=== PATIENT | male | born 1985 ===

== ENCOUNTER 2025-07-02 09:30 | Day surgery (SDC) | payer OTHER ==
[2025-06-29 11:54] LABS: BASO % 0.8 % (0.1-1.2); EOS # 0.15 (0.04-0.54); EOS % 2.1 % (0.7-7.0); LYMPH # 3.49 (1.18-3.74); LYMPH % 49.0 % (19.3-53.1); MEAN PLATELET VOLUME 9.20 fl (9.4-12.4); MONO # 0.48 (0.24-0.82); MONO % 6.7 % (4.7-12.5); NEUT # 2.93 (1.56-6.13); NEUT % 41.3 % (34.0-71.1); RED CELL DISTRIBUTION WIDTH 13.2 % (11.6-14.4)
[2025-06-29 11:55] LABS: URINE APPEARANCE Clear; URINE BILIRRUBIN Negative (NEGATIVE); URINE BLOOD Negative; URINE COLOR Yellow; URINE GLUCOSE Negative (NEGATIVE); URINE KETONE Negative (NEGATIVE); URINE LEUKOCYTE Negative; URINE NITRATE Negative; URINE PROTEIN Negative (NEGATIVE); URINE UROBILINOGEN 0.2 E.U./dl
[2025-06-29 11:59] LABS: URINE RBC 4.2 uL (0.0-20.8)
[2025-06-29 12:04] LABS: URINE BACTERIA 1.2 uL (0.0-1933); URINE CAST 0.14 uL (0.0-1.40); URINE EPITHELIAL CELLS 0.1 uL (0.0-38.8); URINE WBC 1.6 uL (0.0-23.2)
[2025-06-29 12:21] LABS: BUN CREA RATIO 20.0 (7.0-25.0); CREATININE SERUM 0.79 mg/dL (0.70-1.30); GFR 108.63; GLUCOSE FASTING 90.0 mg/dL (65-100); INR 0.99; OSMOLALITY SERUM 278.0 MOSM/KG (275-295)
[~2025-07-02 09:30] MED LIST: TYLENOL ARTHRI650 MG PO
[2025-07-02] MEDS ORDERED: CEFAZOLIN SODIUM 1,000 MG VIAL ONE (11:20)
[2025-07-02] MEDS ORDERED: BUPIVACAINE HCL/MPF 0.5% 30ML VIAL ONE (12:53)
[2025-07-02] MEDS ORDERED: BUPIVACAINE HCL 30 ML VIAL IJ ONE (13:30)
[2025-07-02] MEDS ORDERED: CEFAZOLIN SODIUM 1,000 MG VIAL IV ONE (13:30)
[2025-07-02] MEDS ORDERED: CEPHALEXIN500 MG PO (14:35)
== END 2025-07-02 16:25 | disposition home or self-care (01) ==
LOC: CIR.AMB 09:30
PROVIDERS: ATTEND Surgery
DX: D17.1 Benign lipomatous neoplasm of skin and subcutaneous tissue of trunk (principal); D49.2 Neoplasm of unspecified behavior of bone, soft tissue, and skin; Z91.013 Allergy to seafood